=== PATIENT | female | born 1945 | race Caucasian/White ===

== ENCOUNTER 2019-01-23 12:43 | Outpatient (CLI) | payer MEDICARE, MEDICAID ==
--- NOTE | 2019-01-23 14:11 | CT ---
CT BRAIN NONCONTRAST: DATE: 01/23/2019. TIME: 1:03 p.m. HISTORY: A 73-year-old female with altered mental status: confusion and headache. COMPARISON: 02/18/2017. FINDINGS: NET SORTER shunt catheter enters through a right frontal moe hole, traversing the anteromedial edge of front al horn of right lateral ventricle, with distal tip in the anterior horn of the left lateral ventricl e. Moderate dilation of the bodies and frontal horns of the lateral ventricles, without dilation of the temporal horns, occipital horns, or trigones. Moderate dilation of third ventricle. Mild dilati on of fourth ventricle. Gliosis surrounding the shunt catheter in the right frontal lobe. Moderate chronic ischemic white matter changes bilaterally. Small focus of encephalomalacia and gliosis in t he right paramedian upper cerebrum. No acute intraaxial or extraaxial hemorrhage. No midline shift. No extraaxial fluid collection. No interval change in the calvarium. No interval change overall. IMPRESSION: 1. Ventriculoperitoneal shunt catheter. 2. Moderate ventriculomegaly of anterior portions of lateral ventricles and third ventricle. 3. 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 4. No acute intracranial findings. TREVA Alicia POS: DAVID
== END 2019-01-23 12:44 | disposition home or self-care (01) ==
LOC: CT 12:43
PROVIDERS: ATTEND Psychiatry & Neurology Neurology
DX: G91.2 (Idiopathic) normal pressure hydrocephalus (principal); G93.89 Other specified disorders of brain; Z98.2 Presence of cerebrospinal fluid drainage device
CPT/HCPCS: 70450